=== PATIENT | female | born 1955 | race Caucasian/White ===

== ENCOUNTER 2023-08-31 20:15 | Emergency (ER) | payer MEDICARE, OTHER ==
[2023-08-31] MEDS ORDERED: fentaNYL 100 MCG/2 ML SDV IM ONE (20:59)
== END 2023-08-31 22:03 | disposition home or self-care (01) ==
LOC: JP.ED 20:15
DX: S89.82XA Other specified injuries of left lower leg, initial encounter (principal); W18.30XA Fall on same level, unspecified, initial encounter; Y92.814 Boat as the place of occurrence of the external cause
CPT/HCPCS: 73562-26-LT; 73562-LT; 96372; 99283; J3010